=== PATIENT | male | born 1985 | race Hispanic/Latino ===

== ENCOUNTER → 2024-04-05 | Day surgery (SDC) | payer OTHER ==
[~2024-04-05] MED LIST: ACETAMINOPHEN 1000 MG/100 ML IV ONE; DEXAMETHASONE SOD PHOS INJ 4 MG/ML SDV ONE; DEXMEDETOMIDINE HCL 200 MCG/2 ML VIAL ONE; FENTANYL CITRATE/PF 100MCG/2 ML INJ ONE; LIDOCAINE HCL 2% LOCAL INJ 5 ML SDV VIAL INJ ONE; MIDAZOLAM HCL 2 MG/2 ML VIAL ONE; ONDANSETRON HCL INJ 2MG/ML 2ML 2 MG/ML VIAL ONE; PROPOFOL IV EMULSION 10 MG/ML 20 ML VIAL ONE; SEVOFLURANE INHAL SOLN 250 ML PEN BTL ONE; SODIUM CHLORIDE 0.9% INJ 100 ML BAG ONE
[2024-04-05] MEDS: LACTATED RINGER'S 1,000 ML ONE (06:24)
[2024-04-05 08:15] VITALS: TEMP 97
[2024-04-05] MEDS: FENTANYL CITRATE/PF 100MCG/2 ML INJ ONE (08:40)
[2024-04-05 09:35] VITALS: BP 109/71; PULSE 67; RESP 16; O2SAT 97
== END | disposition home or self-care (01) ==
LOC: OR 05:44
PROVIDERS: ATTEND Specialist
DX: S83.231A Complex tear of medial meniscus, current injury, right knee, initial encounter (principal); M23.300 Other meniscus derangements, unspecified lateral meniscus, right knee; E66.9 Obesity, unspecified; Z71.82 Exercise counseling; Z71.3 Dietary counseling and surveillance; X58.XXXA Exposure to other specified factors, initial encounter; Y93.66 Activity, soccer; Y99.8 Other external cause status; Z68.35 Body mass index [BMI] 35.0-35.9, adult
CPT/HCPCS: J0690; J1100; J2001; J2250; J2405; J7050